=== PATIENT | male | born 1945 | race Hispanic/Latino ===

== ENCOUNTER 2016-05-30 14:10 | Outpatient (CLI) | payer MEDICARE ==
--- NOTE | 2016-05-30 15:28 | XRay Report ---
METASTATIC SURVEY:05/30/16 CLINICAL: Monoclonal gammopathy. FINDINGS: Lateral skull: Negative Cervical spine: Negative. Moderate degenerative change. Thoracic spine: Negative. Moderate degenerative change. Lumbar spine: Negative. Moderate degenerative change. Chest and ribs: Negative Bilateral humerus: Negative Pelvis and hips: Negative Bilateral femur: Negative IMPRESSION: Negative study.
== END 2016-05-30 14:11 | disposition home or self-care (01) ==
LOC: SPVIMAG 14:10
PROVIDERS: ATTEND Internal Medicine Hematology & Oncology
DX: D47.2 Monoclonal gammopathy (principal); M47.892 Other spondylosis, cervical region; M47.896 Other spondylosis, lumbar region; M47.894 Other spondylosis, thoracic region; D75.89 Other specified diseases of blood and blood-forming organs
CPT/HCPCS: 77074